=== PATIENT | female | born 1990 | race Caucasian/White ===

== ENCOUNTER 2021-11-27 10:14 | Outpatient (CLI) | payer BC ==
[2021-11-27 11:09] VITALS: BP 155/92; PULSE 97; RESP 16; TEMP 97.9
[2021-11-27 11:45] LABS: Creatinine,Urine Random 191.1 mg/dL
[2021-11-27 12:14] LABS: Basophils % (A) 0 %; Eosinophils % (A) 1 %; HCT 39.3 % (34.0-46.0); HGB 13.5 gm/dL (11.4-16.0); Lymphocytes % (A) 21 %; MCH 30.9 pg (25.0-35.0); MCHC 34.4 g/dL (31.0-37.0); MCV 89.7 fL (80.0-100.0); Mean Platelet Volume 9.1; Monocytes # (A) 0.5 k/uL (0-1.0); Monocytes % (A) 5 %; Neutrophils # (A) 6.6 k/uL (1.3-7.7); Neutrophils % (A) 71 %; Platelet Count 233 k/uL (150-450); RBC 4.38 m/uL (3.80-5.40); RDW 12.9 % (11.5-15.5); WBC 9.2 k/uL (3.8-10.6)
[2021-11-27 12:38] LABS: ALT 18 U/L (4-34); AST 23 U/L (14-36); Blood Urea Nitrogen 5 mg/dL (7-17)
== END 2021-11-27 13:05 | disposition home or self-care (01) ==
LOC: FBPOP 10:14
PROVIDERS: ATTEND Obstetrics & Gynecology Obstetrics
DX: O13.9 Gestational [pregnancy-induced] hypertension without significant proteinuria, unspecified trimester (principal); Z3A.38 38 weeks gestation of pregnancy; Z88.2 Allergy status to sulfonamides; Z88.7 Allergy status to serum and vaccine
CPT/HCPCS: 59025; 82570; 84156; 84450; 84460; 84520; 85025; 99213

== ENCOUNTER 2021-12-02 06:00 | Inpatient (IN) | payer BC ==
[2021-12-02] MEDS ORDERED: CARBOPROST TROMETHAMINE 250 MCG/ML 1 ML AMP IM PRN (16:28)
[2021-12-02] MEDS ORDERED: LIDOCAINE 0.5% (PF) 5 MG/ML (50 ML SDV) SQ PRN (16:28)
[2021-12-02] MEDS ORDERED: OXYTOCIN 10 UNIT/ML 1 ML VIAL IM PRN (16:28)
[2021-12-02] MEDS ORDERED: TERBUTALINE 1 MG/ML VIAL SQ PRN (16:28)
[2021-12-02] MEDS ORDERED: METHYLERGONOVINE 0.2 MG/ML 1 ML AMP IM PRN (16:28)
[2021-12-02] MEDS ORDERED: DINOPROSTONE 10 MG INSERT.ER VAGINAL ONE (16:29)
[2021-12-02] MEDS ORDERED: OXYTOCIN 30 UNITS/500 ML NS 30 UNIT in SALINE 1 500ML.BAG IV SCH (16:30)
[2021-12-02 17:15] LABS: Basophils % (A) 0 %; Eosinophils % (A) 0 %; HCT 39.1 % (34.0-46.0); HGB 13.6 gm/dL (11.4-16.0); Lymphocytes # (A) 2.1 k/uL (1.0-4.8); Lymphocytes % (A) 21 %; MCH 30.9 pg (25.0-35.0); MCHC 34.8 g/dL (31.0-37.0); MCV 88.8 fL (80.0-100.0); Mean Platelet Volume 8.8; Monocytes # (A) 0.5 k/uL (0-1.0); Monocytes % (A) 5 %; Neutrophils # (A) 7.2 k/uL (1.3-7.7); Neutrophils % (A) 72 %; Platelet Count 259 k/uL (150-450); RDW 12.5 % (11.5-15.5); WBC 9.9 k/uL (3.8-10.6)
[2021-12-02 17:37] LABS: ALT 18 U/L (4-34); AST 23 U/L (14-36); African American GFR (CKD) >90 (>60 ml/min/1.73 sqM); Blood Urea Nitrogen 9 mg/dL (7-17); LDH 405 U/L (313-618); Non-African American GFR(CKD) >90 (>60 ml/min/1.73 sqM); Uric Acid 4.3 mg/dL (3.7-7.4)
[2021-12-02 18:26] LABS: INR 0.8 (<1.2); Partial Thromboplastin Time 24.6 sec (22.0-30.0); Prothrombin Time 9.3 sec (9.0-12.0)
[2021-12-03] MEDS: LACTATED RINGERS 1,000 ML IV SCH ×4 (05:34→19:11)
[2021-12-03] MEDS: BUTORPHANOL 1 MG/ML 1 ML VIAL IV PRN ×2 (08:31→11:39)
[2021-12-03] MEDS ORDERED: ROPIVACAINE 100 MG, fentaNYL (PF). 200 MCG in SODIUM CHLORIDE 0.9% 76 ML EPIDURAL ONE (13:02)
[2021-12-03] MEDS: SERTRALINE 50 MG TAB PO SCH (19:11)
[2021-12-03] MEDS: PRENATAL VIT-IRON-FOLIC ACID 1 EACH TABLET PO SCH (19:11)
[2021-12-03] MEDS ORDERED: LANOLIN CREAM 5 GM TUBE TOPICAL PRN (19:49)
[2021-12-03] MEDS ORDERED: HYDROCORTISONE 2.5% RECTAL CREAM 30 GM TUBE RECTAL PRN (19:49)
[2021-12-03] MEDS ORDERED: diphenhydrAMINE 50 MG/ML 1 ML VIAL IVP PRN ×2 (19:49)
[2021-12-03] MEDS ORDERED: diphenhydrAMINE 50 MG CAP PO PRN (19:49)
[2021-12-03] MEDS ORDERED: SIMETHICONE 80 MG CHEWABLE PO PRN (19:49)
[2021-12-03] MEDS ORDERED: diphenhydrAMINE 25 MG CAP PO PRN (19:49)
[2021-12-03] MEDS ORDERED: ZOLPIDEM 5 MG TAB PO PRN (19:49)
[2021-12-03] MEDS ORDERED: BENZOCAINE/MENTHOL SPRAY 1 GM/SPRAY AEROSOL TOPICAL PRN (19:49)
[2021-12-03] MEDS ORDERED: ACETAMINOPHEN TAB 325 MG TAB PO PRN (19:49)
--- NOTE | 2021-12-03 19:49 | P.PROBDLV ---
Vaginal Delivery Note - . Vaginal Delivery Note: Findings is a viable male delivered at 1927, weight of 8 to, Apgars of 9 and 9 at one and 5 minutes respectively. This is a 30-year-old at 38-6/7 weeks that presented last evening for Cervidil induction of labor secondary to gestational hypertension. Patient was admitted and Cervidil was placed. Patient became uncomfortable through the night with noted cervical change. Cervidil to follow-up around 3 AM. Pitocin augmentation of labor was begun. Amniotomy was performed and clear fluid was obtained. Patient progressed in labor eventually becoming uncomfortable and requesting epidural placement. Epidural was placed without difficulty by the a nesthesia department. Patient made progress toward complete and once completely dilated was placed in the modified lithotomy position. With excellent maternal effort patient was able to bring the down to a presentation. With additional pushes the head followed by the anterior/posterior shoulder and body were delivered. Terminal meconium was appreciated upon delivery. was placed on maternal abdomen spontaneous cry was appreciated. After two-minute delayed female cord was doubly clamped and cut. The attachment was not was appreciated in the umbilical cord. Cord blood was taken. The placenta was delivered spontaneously intact with a three-vessel cord being noted. On inspection the patient's vaginal vault a midline vaginal laceration, second-degree was appreciated. This was repaired the usual fashion with 3-0 Rapide after instillation of lidocaine. A left periurethral laceration was noted in addition this was repaired with 4-0 chromic in a [id number] fashion. Hemostasis was noted afterwards. Uterus was returned to be firm and below the umbilicus. Just after delivery of the the bladder was drained for approximately 200 mL of clear yellow urine. Estimated blood loss 100 mL Patient and tolerated delivery well and are resting comfortably.
--- NOTE | 2021-12-03 19:51 | P.HPOB ---
History of Present Illness H&P Date: 12/02/21 Chief Complaint: IUP at 38-6/7 weeks, gestational hypertension This is a 30-year-old 1 para 0 at 38-6/7 weeks that presents to labor and delivery for induction of labor secondary to gestational hypertension. Patient has been followed with home blood pressures with blood pressures noted to be elevated 130s over 80s. Patient states over the weekend she did have some 140s over 90s. Patient is counseled on gestational hypertension and need for delivery. Patient states understanding and is in agreement with the plan. Patient does note good movement denies vaginal bleeding loss of fluid or contractions. On bloodwork this patient has a blood type of O positive, rubella immune, RPR NR, HIV neg. Review of Systems Constitutional: Denies chills, Denies fatigue, Denies fever Ears, nose, mouth and throat: Denies headache Cardiovascular: Reports leg edema Respiratory: Denies dyspnea Gastrointestinal: Denies nausea, Denies vomiting Genitourinary: Reports Past Medical History History of Any Multi-Drug Resistant Organisms: None Reported Smoking Status: Never smoker Medications and Allergies Home Medications Medication Instructions Recorded Confirmed Type Aspirin [[place] Aspirin EC] 81 mg PO DAILY 11/27/21 12/02/21 History Vit No.179/Iron/Folic 1 tab PO DAILY 11/27/21 12/02/21 History [ Tablet] Sertraline HCl [Zoloft] 75 mg PO DAILY 11/27/21 12/02/21 History Allergies Allergy/AdvReac Type Severity Reaction Status Date / Time Pertussis Vaccines AdvReac Unknown Verified 12/02/21 16:33 Childhood Sulfa (Sulfonamide AdvReac Unknown Verified 12/02/21 16:33 Antibiotics) Childhood Exam Osteopathic Statement: *. No significant issues noted on an osteopathic structural exam other than those noted in the History and Physical/Consult. Intake and Output 12/02/21 12/02/21 12/02/21 06:59 14:59 22:59 Other: Weight 108.409 kg Targeted physical exam is performed and state in general this a well-nourished well-developed female in no acute distress, breathing is nonlabored, heart has a regular rate and rhythm, abdomen is gravid and appropriate for gestational age, heart tones returned be category 1 and she is golden irregularly. Results Result Diagrams: 12/02/21 16:50 Assessment and Plan (1) Term Current Visit: Yes Status: Acute Code(s): Z34.90 - ENCNTR FOR SUPRVSN OF NORMAL , UNSP, UNSP TRIMESTER SNOMED Code(s): 81794434 (2) Gestational HTN Current Visit: Yes Status: Acute Code(s): O13.9 - GESTATIONAL HTN W/O SIGNIFICANT PROTEINURIA, UNSP TRIMESTER SNOMED Code(s): 75614927 Plan: 30-year-old at 38-6/7 weeks that presents for induction of labor secondary to gestational hypertension. Cervidil induction of labor is begun, options for analgesia including Stadol and epidural are discussed. Patient will consider.
[2021-12-03] MEDS ORDERED: OXYTOCIN 30 UNITS/500 ML NS 30 UNIT in SALINE 1 500ML.BAG IV SCH (20:00)
[2021-12-03] MEDS: IBUPROFEN 600 MG TAB PO SCH (20:29)
[2021-12-03] MEDS: SENNOSIDES-DOCUSATE SODIUM 1 EACH TAB PO SCH (20:44)
[2021-12-04] MEDS: IBUPROFEN 600 MG TAB PO SCH ×4 (04:17→20:14)
--- NOTE | 2021-12-04 06:23 | P.PNOBGVD ---
Subjective - Subjective Principal diagnosis: day #1 Interval history: Patient is doing well this morning. She is ambulating and voiding without difficulty. She is tolerating a regular diet without nausea or vomiting. She states her pain is well-controlled. She is breast-feeding without difficulty. Patient reports: Reports appetite normal, Reports voiding normally, Reports pain well controlled, Reports ambulating normally : doing well, nursing well Objective - Latest Vital Signs Latest vital signs: Vital Signs Temp Pulse Resp BP Pulse Ox 12/04/21 04:00 97.8 F 64 18 111/60 12/03/21 23:49 98.8 F 68 16 113/62 98 12/03/21 21:43 96.8 F L 92 16 128/74 12/03/21 21:13 97.7 F 90 16 134/77 12/03/21 20:43 97.7 F 80 16 134/79 12/03/21 20:28 82 16 132/78 12/03/21 20:13 97.9 F 88 16 132/80 12/03/21 19:58 85 16 143/86 12/03/21 19:43 97.6 F 89 16 137/90 Intake and Output 12/03/21 12/03/21 12/04/21 14:59 22:59 06:59 Intake Total 194.8 Output Total 550 Balance -355.2 Intake: Intake, IV Titration 194.8 Amount Oxytocin 30 Units/500 ml 194.8 Ns 30 unit In Saline 1 500ml.bag @ Per Protocol IV .Q0M MAYITO Rx#:[id number] Output: Urine 200 Estimated Blood Loss 300 Output, Quantitative 50 Blood Loss Other: # Voids 1 1 0 - Exam Extremities: Present: normal Abdomen: Present: normal appearance, soft Uterus: Present: normal, firm Assessment and Plan (1) Term Current Visit: Yes Status: Acute Code(s): Z34.90 - ENCNTR FOR SUPRVSN OF NORMAL , UNSP, UNSP TRIMESTER SNOMED Code(s): 38024545 (2) Gestational HTN Current Visit: Yes Status: Acute Code(s): O13.9 - GESTATIONAL HTN W/O SIGNIFICANT PROTEINURIA, UNSP TRIMESTER SNOMED Code(s): 40797350 (3) Status post normal vaginal delivery Current Visit: Yes Status: Acute Code(s): IZW7373 - SNOMED Code(s): 507300033 (4) Obstetric vaginal laceration with second degree perineal laceration Current Visit: Yes Status: Acute Code(s): O70.1 - SECOND DEGREE PERINEAL LACERATION DURING DELIVERY SNOMED Code(s): 624498411 Plan: Patient is doing well . We'll continue routine care and anticipate discharge home tomorrow.
[2021-12-04] MEDS: SENNOSIDES-DOCUSATE SODIUM 1 EACH TAB PO SCH ×2 (09:08→20:14)
[2021-12-04] MEDS: PRENATAL VIT-IRON-FOLIC ACID 1 EACH TABLET PO SCH (09:09)
[2021-12-04] MEDS: SERTRALINE 50 MG TAB PO SCH (09:09)
[2021-12-05] MEDS: IBUPROFEN 600 MG TAB PO SCH ×2 (02:37→08:05)
--- NOTE | 2021-12-05 09:16 | P.DS ---
Providers Date of admission: 12/02/21 16:06 Expected date of discharge: 12/05/21 Attending physician: Lisa Hernandez Primary care physician: Soren Lynn - Discharge Diagnosis(es) (1) Term Current Visit: Yes Status: Acute (2) Gestational HTN Current Visit: Yes Status: Acute (3) Status post normal vaginal delivery Current Visit: Yes Status: Acute (4) Obstetric vaginal laceration with second degree perineal laceration Current Visit: Yes Status: Acute Hospital Course: this is a 30-year-old 1 para 0 that presented to labor and delivery at 38-6/7 weeks for Cervidil induction of labor secondary to gestational hypertension. Patient is been receiving routine care which discomfort located by gestational hypertension therefore induction of labor was initiated. Patient was admitted and Cervidil induction of labor was begun. Patient did become uncomfortable through the night after Cervidil was placed and made cervic al change. The Cervidil was removed around 3 AM. Pitocin augmentation of labor was begun. Amniotomy was performed clear fluid was obtained. Patient progressed through labor and eventually requested epidural placement. Epidural was placed without difficulty by the anesthesia department. Patient made good progress towards complete and had a normal spontaneous vaginal delivery of a viable male at 1927, weight of 8 pounds 2 ounces. Secondary midline laceration was appreciated after delivery and repaired in the usual fashion with 3-0 Rapide. In addition a left periurethral laceration was noted and repaired with 4-0 chromic. Patient's care has been uneventful. On this postop day #2 she is ambulating and voiding without difficulty. She is tolerating a regular diet without nausea or vomiting. She is breast-feeding without difficulty. She is requesting circumcision for her son prior to discharge which will be completed. She would like discharge home later stay. Patient Condition at Discharge: Good Plan - Discharge Summary New Discharge Prescriptions: No Action Aspirin [[place] Aspirin EC] 81 mg PO DAILY Vit No.179/Iron/Folic [ Tablet] 1 tab PO DAILY Sertraline HCl [Zoloft] 75 mg PO DAILY Discharge Medication List Aspirin [[place] Aspirin EC] 81 mg PO DAILY 11/27/21 [History] Vit No.179/Iron/Folic [ Tablet] 1 tab PO DAILY 11/27/21 [History] Sertraline HCl [Zoloft] 75 mg PO DAILY 11/27/21 [History] Follow up Appointment(s)/Referral(s): Lisa Hernandez DO [Doctor of Osteopathic Medicine] - 4 Weeks Patient Instructions/Handouts: Vaginal Delivery (DC), Vaginal Delivery (GEN) Discharge Disposition: HOME SELF-CARE
[2021-12-05 10:46] VITALS: BP 139/86; PULSE 78; RESP 16; TEMP 98
== END 2021-12-05 12:30 | disposition home or self-care (01) | DRG 807 ==
LOC: 4FBP 16:06
PROVIDERS: ADMIT Obstetrics & Gynecology Obstetrics; ATTEND Obstetrics & Gynecology Obstetrics
PROC: 10E0XZZ Delivery of Products of Conception, External Approach (ICD-10-PCS; principal; 2021-12-03)
PROC: 0KQM0ZZ Repair Perineum Muscle, Open Approach (ICD-10-PCS; 2021-12-03)
DX: O13.4 Gestational [pregnancy-induced] hypertension without significant proteinuria, complicating childbirth (principal); Z37.0 Single live birth; O70.1 Second degree perineal laceration during delivery; O77.0 Labor and delivery complicated by meconium in amniotic fluid; Z3A.38 38 weeks gestation of pregnancy; Z79.82 Long term (current) use of aspirin; Z79.899 Other long term (current) drug therapy
CPT/HCPCS: 82565; 83615; 84450; 84460; 84520; 84550; 85025; 85384; 85610; 85730; 86850; 86900; 86901